=== PATIENT | female | born 1960 | race Caucasian/White ===

== ENCOUNTER 2017-07-03 20:42 | Emergency (ER) | payer OTHER ==
[~2017-07-03] VITALS: Ht 165.1 cm; Wt 68.0 kg
[2017-07-03] MEDS ORDERED: INCARCERATION (20:56)
== END 2017-07-03 21:04 ==
LOC: ER 20:42
DX: S50.11XA Contusion of right forearm, initial encounter (principal); W22.8XXA Striking against or struck by other objects, initial encounter; F32.9 Major depressive disorder, single episode, unspecified
CPT/HCPCS: 73090; 99283

== ENCOUNTER 2017-09-11 10:48 | Emergency (ER) | payer OTHER ==
[~2017-09-11] VITALS: Ht 170.2 cm; Wt 70.3 kg
[~2017-09-11 10:48] MED LIST: INCARCERATION
[2017-09-11] MEDS ORDERED: HYDR1TAB94 (11:29)
[2017-09-11] MEDS ORDERED: LORA1 PO (11:29)
[2017-09-11] MEDS ORDERED: PANT40 PO (11:29)
[2017-09-11] MEDS ORDERED: BUSP15 PO (11:30)
[2017-09-11] MEDS ORDERED: SERT25 PO (11:30)
[2017-09-11] MEDS ORDERED: PROG100 PO (11:30)
[2017-09-11] MEDS ORDERED: PROM25 PO (11:31)
[2017-09-11] MEDS ORDERED: ROPI1 PO (11:32)
[2017-09-11] MEDS ORDERED: Prazosin HCl2 MG PO (11:32)
[2017-09-11] MEDS ORDERED: NAPR500ERA PO (11:33)
[2017-09-11] MEDS ORDERED: TRAZ100 (11:34)
== END 2017-09-11 14:00 | disposition home or self-care (01) ==
LOC: ER 10:48
DX: M25.562 Pain in left knee (principal); Z88.0 Allergy status to penicillin; Z88.5 Allergy status to narcotic agent; Z79.899 Other long term (current) drug therapy; Z79.891 Long term (current) use of opiate analgesic; F32.9 Major depressive disorder, single episode, unspecified; F41.9 Anxiety disorder, unspecified; F17.200 Nicotine dependence, unspecified, uncomplicated
CPT/HCPCS: 29505; 73564; 99283-25

== ENCOUNTER → 2018-05-13 | Outpatient (CLI) | payer OTHER ==
[~2018-05-13] MED LIST changes: +BUSP15 PO; +HYDR1TAB94; +LORA1 PO; +NAPR500ERA PO; +PANT40 PO; +PROG100 PO; +PROM25 PO; +Prazosin HCl2 MG PO; +ROPI1 PO; +SERT25 PO; +TRAZ100
[2018-05-14 10:42] LABS: Candida species (DNA Probe) Positive (NEGATIVE); G. vaginalis (DNA Probe) Negative (NEGATIVE); T. vaginalis (DNA Probe) Negative (NEGATIVE)
[2018-05-16 01:11] LABS: CHLAMYDIA TRACHOMATIS, NAA Negative (Negative); HPV 16 Negative (Negative); HPV 18 Negative (Negative); HPV OTHER HR TYPES Negative (Negative); NEISSERIA GONORRHOEAE, NAA Negative (Negative)
== END | disposition home or self-care (01) ==
LOC: LAB 16:06 → LAB SHORT 16:06
PROVIDERS: Obstetrics & Gynecology
DX: Z01.419 Encounter for gynecological examination (general) (routine) without abnormal findings (principal); Z11.3 Encounter for screening for infections with a predominantly sexual mode of transmission; N76.0 Acute vaginitis; N95.0 Postmenopausal bleeding
CPT/HCPCS: 87480; 87491; 87510; 87591; 87624; 87660; 88305; G0123

== ENCOUNTER 2018-06-19 14:54 | Emergency (ER) | payer OTHER ==
[~2018-06-19] VITALS: Ht 167.6 cm; Wt 75.3 kg
[2018-06-19 16:05] LABS: Source, Urine Clean Catch
[2018-06-19 16:09] LABS: BASOPHILS ABSOLUTE AUTO 0.03 K/mm3 (0.00-0.23); BASOPHILS PERCENT AUTO 0 % (0-2); EOSINOPHILS ABSOLUTE AUTO 0.23 K/mm3 (0.00-0.68); EOSINOPHILS PERCENT AUTO 3 % (0-6); Hematocrit 43.5 % (33.0-51.0); Hemoglobin 14.4 g/dL (11.5-16.0); IMMATURE GRAN ABSOLUTE AUTO 0.03 K/mm3 (0.00-0.10); IMMATURE GRAN PERCENT AUTO 0 % (0-1); LYMPHOCYTES PERCENT AUTO 27 % (21-46); MONOCYTES ABSOLUTE AUTO 0.54 K/mm3 (0.16-1.47); MONOCYTES PERCENT AUTO 6 % (4-13); Mean Corpuscular HGB 30.6 pg (26.0-34.0); Mean Corpuscular HGB Conc 33.1 g/dL (31.5-36.5); Mean Corpuscular Volume 93 fL (80-100); Mean Platelet Volume 10.4 fL (9.1-12.4); NEUTROPHILS ABSOLUTE AUTO 5.54 K/mm3 (1.96-9.15); NEUTROPHILS PERCENT AUTO 63 % (41-73); Platelet Count 224 K/mm3 (150-400); RDW Coefficient Variation 13.2 % (11.7-14.2); RDW Standard Deviation 45.2 fL (35.1-46.3); White Blood Cell Count 8.77 K/mm3 (4.00-11.30)
[2018-06-19 16:14] LABS: Bilirubin, Urine Neg (Neg); Blood, Urine Neg (Neg); Glucose Qualitative, Urine Neg (Neg); Ketones, Urine Neg (Neg); Leukocyte Esterase, Urine 1+ (Neg); Nitrite, Urine Neg (Neg); Protein, Urine 1+ (Neg); Urobilinogen, Urine NORM (Normal)
[2018-06-19 16:23] LABS: Appearance, Urine Clear (Clear); Color, Urine Yellow (P-Yellow)
[2018-06-19 16:25] LABS: Bacteria Few /hpf; Red Blood Cells, Urine 0-2 /hpf (0-2); Squamous Epithelial Cells Few /hpf (Few); White Blood Cells, Urine 0-2 /hpf (0-5)
[2018-06-19 16:26] LABS: U Amphetamine Screen Not Detected; U Barbituate Screen Not Detected; U Benzodiazapine Screen DETECTED; U Buprenorphine Screen Not Detected; U Cannabinoids Screen Not Detected; U Cocaine Screen Not Detected; U Methadone Screen Not Detected; U Methamphetamine Screen Not Detected; U Opiates Screen Not Detected; U Oxycodone Screen Not Detected; U Phencyclidine Screen Not Detected; U Propoxyphene Screen Not Detected
[2018-06-19 16:38] LABS: Alanine Aminotransfer (ALT/SGP 18 U/L (12-78); Albumin/Globulin Ratio 1.2 (0.8-1.8); Alk Phos 65 U/L (50-136); Anion Gap 10 mmol/L (6-16); Aspartate Aminotrans (AST/SGOT 18 U/L (12-37); Bilirubin, Total 0.3 mg/dL (0.1-1.0); Blood Urea Nitrogen 17 mg/dL (8-24); Bun/Creatinine Ratio 20.4 (12.0-20.0); CO2, Blood 24 mmol/L (21-32); Calcium, Blood 8.6 mg/dL (8.5-10.1); Chloride, Blood 105 mmol/L (98-108); Creatinine, Blood 0.83 mg/dL (0.40-1.00); Globulin, Blood 3.4 g/dL (2.2-4.0); Glomerular Filtration Rate >60 (60-); Glucose, Blood 95 mg/dL (70-99); Potassium, Blood 3.8 mmol/L (3.5-5.5); Sodium, Blood 139 mmol/L (136-145); Total Protein, Blood 7.4 g/dL (6.4-8.2)
[2018-06-19 16:43] LABS: Thyroid Stimulating Hormone 0.476 uIU/mL (0.360-4.800)
[2018-06-19] MEDS ORDERED: SERT100 PO (17:46)
[2018-06-19] MEDS ORDERED: GABA800 PO (17:46)
[2018-06-19] MEDS ORDERED: Inderal40 MG PO (17:46)
[2018-06-19] MEDS ORDERED: PROGESTERONE100 MG PO (17:47)
[2018-06-19] MEDS ORDERED: ESTROGEN (17:47)
[2018-06-19] MEDS ORDERED: TRAZ100 PO (17:47)
[2018-06-19] MEDS ORDERED: LORA1 PO (17:48)
[2018-06-19] MEDS ORDERED: ALBU90OI61 INH (17:48)
[2018-06-19] MEDS ORDERED: HALO2 PO (18:43)
== END 2018-06-19 18:50 | disposition home or self-care (01) ==
LOC: ER 14:54
PROVIDERS: Physician Assistant
DX: F31.9 Bipolar disorder, unspecified (principal); Z88.0 Allergy status to penicillin; Z88.5 Allergy status to narcotic agent; Z79.899 Other long term (current) drug therapy; Z79.891 Long term (current) use of opiate analgesic; J45.909 Unspecified asthma, uncomplicated; F17.210 Nicotine dependence, cigarettes, uncomplicated
CPT/HCPCS: 36415; 80053; 81001; 84443; 85025; 87086; 96374; 99284-25; J1630; Q3014

== ENCOUNTER → 2018-07-15 | Outpatient (CLI) | payer OTHER ==
[~2018-07-15] MED LIST changes: +ALBU90OI61 INH; +ESTROGEN; +GABA800 PO; +HALO2 PO; +Inderal40 MG PO; +PROGESTERONE100 MG PO; +SERT100 PO; +TRAZ100 PO
== END ==
LOC: LAB EV 18:19 → LAB SHORT 18:19
DX: R30.0 Dysuria (principal)
CPT/HCPCS: 87086